=== PATIENT | female | born 1995 | race Native Hawaiian/Other Pacific Islander ===

== ENCOUNTER 2018-10-13 23:43 | Emergency (ER) | payer BC ==
[~2018-10-13] VITALS: Ht 177.8 cm; Wt 69.4 kg
[2018-10-14 00:37] LABS: PLATELET COUNT 227 K/uL (152-353)
[2018-10-14 00:47] LABS: POTASSIUM 4.5 mmol/L (3.6-5.2)
[2018-10-14 01:31] VITALS: BP 110/79; TEMP 98.3
== END 2018-10-14 01:25 | disposition home or self-care (01) ==
LOC: ED 23:43
PROVIDERS: Emergency Medicine
DX: R53.1 Weakness (principal); T39.1X5A Adverse effect of 4-Aminophenol derivatives, initial encounter
CPT/HCPCS: 36415; 80053; 81000; 85027; 96360; 96361; 99284

== ENCOUNTER 2019-08-09 05:01 | Emergency (ER) | payer BC ==
[~2019-08-09] VITALS: Ht 177.8 cm; Wt 81.6 kg
[2019-08-09 05:48] VITALS: BP 115/65
== END 2019-08-09 05:50 | disposition home or self-care (01) ==
LOC: ED 05:01
DX: H60.8X2 Other otitis externa, left ear (principal); H65.92 Unspecified nonsuppurative otitis media, left ear
CPT/HCPCS: 96372; 99283; J1885

== ENCOUNTER 2022-03-02 00:16 | Emergency (ER) | payer OTHER ==
[~2022-03-02] VITALS: Ht 175.3 cm; Wt 97.5 kg
[2022-03-02 02:10] VITALS: BP 113/71; TEMP 98.9
== END 2022-03-02 02:10 | disposition home or self-care (01) ==
LOC: ED 00:16
DX: S63.8X1A Sprain of other part of right wrist and hand, initial encounter (principal); W01.0XXA Fall on same level from slipping, tripping and stumbling without subsequent striking against object, initial encounter; Y92.89 Other specified places as the place of occurrence of the external cause
CPT/HCPCS: 96372; 99283; J1885